=== PATIENT | female | born 1980 | race Caucasian/White ===

== ENCOUNTER → 2024-02-27 09:36 | Outpatient (REF) | payer OTHER, SELFPAY | LOC: HWWDC 09:36 | PROVIDERS: ATTENDING PHYSICIAN Nurse Practitioner Adult Health | DX: Z12.31 Encounter for screening mammogram for malignant neoplasm of breast (principal) | CPT/HCPCS: 77063; 77067 ==

== ENCOUNTER → 2024-12-23 10:19 | Outpatient (REF) | payer OTHER, SELFPAY | LOC: WDC 10:19 | PROVIDERS: ATTENDING PHYSICIAN Nurse Practitioner Adult Health | DX: N64.4 Mastodynia (principal) | CPT/HCPCS: 76642; 77062; 77066 ==

== ENCOUNTER → 2025-02-17 14:52 | Outpatient (REF) | payer OTHER, SELFPAY | LOC: RAD 14:52 | PROVIDERS: ATTENDING PHYSICIAN Nurse Practitioner Adult Health | DX: M25.562 Pain in left knee (principal); M25.462 Effusion, left knee | CPT/HCPCS: 73564 ==